=== PATIENT | female | born 1980 | race Caucasian/White ===

== ENCOUNTER → 2018-09-14 14:00 | Outpatient (CLI) | payer OTHER, SELFPAY | DX: Z23 Encounter for immunization (principal) | CPT/HCPCS: 90471; 90686 ==

== ENCOUNTER → 2018-11-30 13:11 | Outpatient (CLI) | payer OTHER, SELFPAY ==
--- NOTE | 2018-11-30 13:13 | DI.CT.S_ITS ---
PROCEDURE: CT ABDOMEN PELVIS W CON INDICATIONS: Left lower quadrant pain since 10/28 TECHNIQUE: After the administration of oral and intravenous contrast, 5 mm thick sections acquired from the diaphragms to the symphysis. 5 mm thick coronal and sagittal reformats were performed. For radiation dose reduction, the following was used: automated exposure control, adjustment of mA and/or kV according to patient size. COMPARISON: [facility], CT, ABDOMEN/PELVIS WITH CONTRAST, 07/06/2009, 11:27. FINDINGS: Image quality: Excellent. ABDOMEN: Lung bases: Linear scarring/atelectasis are noted in bilateral lung bases. Heart size is normal. Solid organs: Liver is normal in size and enhancement. There is hepatic steatosis. Gallbladder contains a 2.4 x 1.8 cm peripherally calcified stone. No gallbladder wall thickening or pericholecystic fluid is seen.. Biliary system is non-dilated. Pancreas enhances normally. Spleen is normal in size and enhancement. No adrenal nodules. Kidneys are normal in size and enhancement, without hydronephrosis. Peritoneum and bowel: There is wall thickening involving distal descending colon/proximal sigmoid colon with adjacent mesenteric fat stranding suggestive of acute diverticulitis in this region. No adjacent abscess collection. No other area of abnormal bowel wall thickening. No free fluid or free air. Appendix is visualized and is within normal limits. Nodes and vessels: No retroperitoneal or mesenteric adenopathy. Aorta and inferior vena cava are normal in caliber. Miscellaneous: No ventral hernias. PELVIS: Genitourinary: Bladder wall thickness is normal. Miscellaneous: No inguinal hernias or adenopathy. Bones: No suspicious bony lesions. No vertebral body compression fractures. IMPRESSION: 1. Finding is consistent with acute diverticulitis involving distal descending colon/proximal sigmoid colon in left lower quadrant. No abscess collection. No free fluid or free air. 2. No renal stone hydronephrosis. 3. Cholelithiasis. No CT evidence of acute cholecystitis. Hepatic steatosis. Findings were reported to Dr. Hein's office at 3:09 PM on 11/30/18. Dictated by: Jony Bass M.D. on 11/30/2018 at 14:52 Approved by: Jony Bass M.D. on 11/30/2018 at 15:09
== END ==
PROVIDERS: Visit Provider Obstetrics & Gynecology
DX: K57.32 Diverticulitis of large intestine without perforation or abscess without bleeding (principal); K80.20 Calculus of gallbladder without cholecystitis without obstruction; K76.0 Fatty (change of) liver, not elsewhere classified; R10.32 Left lower quadrant pain
CPT/HCPCS: 74177; Q9967

== ENCOUNTER → 2019-11-01 15:14 | Outpatient (CLI) | payer OTHER, SELFPAY | PROVIDERS: PCP Family Medicine | DX: Z23 Encounter for immunization (principal) | CPT/HCPCS: 90471; 90686 ==

== ENCOUNTER → 2020-06-27 16:05 | Outpatient (CLI) | payer OTHER, SELFPAY ==
--- NOTE | 2020-06-27 16:08 | DI.RAD.S_ITS ---
PROCEDURE: XR SHOULDER RT MIN 2V INDICATIONS: rt shoulder impingment TECHNIQUE: 3 views of the shoulder were acquired. COMPARISON: None. FINDINGS: Bones: No fractures or dislocations. No suspicious bony lesions. Visualized ribs appear intact. Soft tissues: No suspicious soft tissue calcifications. IMPRESSION: No acute osseous abnormalities seen on x-ray. If clinical symptoms persist or clinical suspicion for internal derangement is high, MRI is suggested for further evaluation. Dictated by: Fawn Rodriguez M.D. on 06/27/2020 at 17:55 Approved by: Fawn Rodriguez M.D. on 06/27/2020 at 17:56
== END ==
PROVIDERS: PCP Family Medicine; Referring Provider Family Medicine; Visit Provider Family Medicine
DX: M75.41 Impingement syndrome of right shoulder (principal)
CPT/HCPCS: 73030

== ENCOUNTER 2020-08-02 14:30 | Outpatient (RCR) | payer OTHER, SELFPAY ==
--- NOTE | 2020-07-04 14:03 | PT.OIE ---
Current Diagnoses Pain in right shoulder (07/04/20) Past Surgical History (Last Reviewed 12/04/18 @ 10:04 by Shari Ryan LPN) Status post hysteroscopy Status post hysteroscopy Visit Care Team Role Provider Type Juan Marsh MD Attending Provider Physician Primary Care Provider Referring Provider Specialty: Family Practice Address: [address] [place] [address], [id number] Email: [email or web address] Physical Therapy Initial Evaluation PT-OP-A Visit Information Start: 07/03/20 07:25 Freq: Status: Active Protocol: Document 07/04/20 09:45 MB (Rec: 07/04/20 10:10 MB [id number]) Out-Patient Physical Therapy Visit Information Visit Information Visit Type Initial Evaluation Visit Start Time 09:45 Visit Stop Time 10:23 Total Visit Minutes 38 Visit Number 1 Evaluation Information Evaluation Date 07/04/20 PT-OP-B Current Condition Start: 07/03/20 07:25 Freq: Status: Active Protocol: Document 07/04/20 09:45 MB (Rec: 07/04/20 10:10 MB [id number]) Current Condition History of Current Condition Onset Date Several years Current Complaints Pain with lifting arm to put on deoderant and to reach over head History of Current Condition Pt reports a few weeks ago, the worst pain she has ever had. She couldn't sleep. She worked on sleeping position and it got better. Pt reports up to 7/10 superior shoulder pain on the right and 5/10 armpit pain. She has tried ice and heat. 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 Her keyboard is on the desk. She has to sit close. She demostrates keeping her hands up near body at about 90/90 degrees. Pt repors some neck discomfort on the right. She denies numbness and tingling. Her right arm falls asleep easily when sleeping on her side. Pt has trouble washing de [place], up high. 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 PMH: PE 2007 and was treated, taken off BCP, increased BMI. Treatment Goals Patient/Caregiver Goals Pt's goal for PT is to increase ROM and to never have the pain she had a few weeks ago. PT-OP-C Subjective Start: 07/03/20 07:25 Freq: Status: Active Protocol: Document 07/04/20 09:45 MB (Rec: 07/04/20 10:10 MB [id number]) OP-PT Subjective Patient Comments Patient Comments See history of current condition. Patient Questionnaires Quick Dash- Upper Extremity Quick Dash UE Score 27 Quick Dash UE Impairment 20 to 39% Impaired (Score 20- 39) PT-OP-J Posture/Palpation/Skin Start: 07/03/20 07:25 Freq: Status: Active Protocol: Document 07/04/20 09:45 MB (Rec: 07/04/20 14:03 MB [id number]) Posture Evaluation Comments Posture Comments Standing posture: R shoulder slightly lower than the left ( pt is right hand dominant), Dowager's hump, decreased thoracic kyphosis, increased lumbar lordosis, anterior tilt pelvis, increased soft tissue anterior body that may exacerbate forward head, rounded shoulders, increased lumbar lordosis and anterior tilt pelvis, right iliac crest higher than the left, thigh approximation and B knee valgus in standing. PT-OP-K Range of Motion Start: 07/03/20 07:25 Freq: Status: Active Protocol: Document 07/04/20 09:45 MB (Rec: 07/04/20 14:03 MB [id number]) Cervical Spine Range of Motion Cervical Spine Active Testing Position Standing Flexion 24 Extension 35 Rotation Left 55 Rotation Right 48 Lateral Flexion Left 25 Lateral Flexion Right 25 ROM Limitations Soft Tissue Tightness,Pain Shoulder Goniometric Range of Motion Shoulder Left Shoulder ROM WFL Yes Right Shoulder ROM WFL No Testing Position Standing Flexion 124 Abduction 123 Shoulder ROM Limitations Comments Active IR behind back normal B Supine, pt guards with PROM right shoulder ER and IR with elbow at 90 deg and right shoulder at 60 deg abduction-- cannot measure Pt reports superior right shoulder pain 5/10 with active shoulder flexion and abduction in standing PT-OP-M Strength Start: 07/03/20 07:25 Freq: Status: Active Protocol: Document 07/04/20 09:45 MB (Rec: 07/04/20 14:03 MB [id number]) Shoulder Strength Shoulder Manual Muscle Testing Left Flexion 5 Normal Abduction (C5) 5 Normal External Rotation 5 Normal Internal Rotation 5 Normal Right External Rotation 3+ Fair+ Internal Rotation 3+ Fair+ Comments Right shoulder flexion and abduction NT d/t pain with AROM and self-limits range Elbow/Forearm Strength Elbow and Forearm Manual Muscle Testing Left Flexion (C6) 5 Normal Extension (C7) 5 Normal Pronation 5 Normal Supination 5 Normal Right Flexion (C6) 4 Good Extension (C7) 4 Good Pronation 4 Good Supination 4 Good Wrist Strength Wrist Manual Muscle Testing Left Flexion (C7) 5 Normal Extension (C6) 5 Normal Right Flexion (C7) 3+ Fair+ Extension (C6) 3+ Fair+ PT-OP-Q Treatments Start: 07/03/20 07:25 Freq: Status: Active Protocol: Document 07/04/20 09:45 MB (Rec: 07/04/20 10:26 MB [id number]) Therapeutic Exercises Supine Exercises AAROM right shoulder flexion with cane Side bilateral Comments 10 reps, thumbs up, cervical support in pillow Standing Exercises Racquet ball massage intrascapular area Comments Right greater than left Self-Care/Home Management Treatment Education Other Education Handout for proper desk ergonomics PT-OP-T Assessment and Plan Start: 07/03/20 07:25 Freq: Status: Active Protocol: Document 07/04/20 09:45 MB (Rec: 07/04/20 10:45 MB [id number]) Physical Therapy Assessment Rehab Potential Rehabilitation Potential Good Evaluation Complexity Number of Personal Factors/Comorbidities 1-2 Number of Body Systems Impaired 1-2 Clinical Presentation at Evaluation Evolving Impairments Impairments Activity Tolerance,Pain, Posture,ROM,Soft Tissue Mobility,Strength Other Impairments Increased body mass, sitting at desk for work Other Concerns Fall Risk No Goals 4 Jail Goal (LTG) Pt will present with a QuickDASH score reflecting no more than 10% impairment to reflect improved function and pain by 09/04/2020. LTG Duration 8 weeks 3 Cyber Systems Administrator Goal (LTG) Pt will present with right UE AROM flexion and abduction WNLs (equal to the left) to allow overhead activities by 09/04/2020. LTG Duration 8 weeks 2 Cyber Systems Administrator Goal (LTG) Pt will present with right MMT 5/5 shoulder flexion, abduction, IR and ER and elbow pronation and supination and wrist flexion and extension to allow normal use of dominant hand by 09/04/2020. LTG Duration 8 weeks 1 Jail Goal (LTG) Pt will perform progressive HEP with I including flexibility, postural, alignment and strengthening to improve ROM and pain by 2019. LTG Duration 8 weeks Assessment Summary Assessment Pt is a 39 y/o female presenting with chronic right shoulder pain. She presents with postural and myofascial changes, right shoulder ROM and strength deficits and has to sit at a desk for her job. She will benefit from PT to improve range, strength, posture, alignment and pain. Barriers include postural changes, increased body mass and sitting for work. Physical Therapy Plan Frequency and Duration Frequency of Treatment 2x/Week Duration of Treatment 8 weeks Plan of Care Start Date 07/04/20 Plan of Care End Date 09/04/20 Therapeutic Interventions Therapeutic Interventions Canalithic Repositioning,Home Exercise Program,Manual Therapy,Neuromuscular Re- education,Patient/Caregiver Education,Self-Care/Home Management,Soft Tissue Mobilization,Taping, Therapeutic Activities, Therapeutic Exercises Modalities Cold Pack/Ice Massage,Electric Stimulation,Hot Packs, Ultrasound Next Visit Focus/Plan Next Note Type Treatment Note Next Visit Plan Review HEP and progress
--- NOTE | 2020-07-04 14:03 | PT.OPPOC ---
Physical, Occupational & Speech Therapy At [facility] Current Diagnoses Pain in right shoulder (07/04/20) Visit Care Team Role Provider Type Juan Marsh MD Attending Provider Physician Primary Care Provider Referring Provider Specialty: Family Practice Address: [address] [place] [address], [address] Email: [email or web address] Plan Of Care PT-OP-T Assessment and Plan Start: 07/03/20 07:25 Freq: Status: Active Protocol: Document 07/04/20 09:45 MB (Rec: 07/04/20 10:45 MB [id number]) Physical Therapy Assessment Rehab Potential Rehabilitation Potential Good Evaluation Complexity Number of Personal Factors/Comorbidities 1-2 Number of Body Systems Impaired 1-2 Clinical Presentation at Evaluation Evolving Impairments Impairments Activity Tolerance,Pain, Posture,ROM,Soft Tissue Mobility,Strength Other Impairments Increased body mass, sitting at desk for work Other Concerns Fall Risk No Goals 4 Milk Runner Goal (LTG) Pt will present with a QuickDASH score reflecting no more than 10% impairment to reflect improved function and pain by 09/04/2020. LTG Duration 8 weeks 3 Milk Runner Goal (LTG) Pt will present with right UE AROM flexion and abduction WNLs (equal to the left) to allow overhead activities by 09/04/2020. LTG Duration 8 weeks 2 Milk Runner Goal (LTG) Pt will present with right MMT 5/5 shoulder flexion, abduction, IR and ER and elbow pronation and supination and wrist flexion and extension to allow normal use of dominant hand by 09/04/2020. LTG Duration 8 weeks 1 Fdc Goal (LTG) Pt will perform progressive HEP with I including flexibility, postural, alignment and strengthening to improve ROM and pain by 2019. LTG Duration 8 weeks Assessment Summary Assessment Pt is a 39 y/o female presenting with chronic right shoulder pain. She presents with postural and myofascial changes, right shoulder ROM and strength deficits and has to sit at a desk for her job. She will benefit from PT to improve range, strength, posture, alignment and pain. Barriers include postural changes, increased body mass and sitting for work. Physical Therapy Plan Frequency and Duration Frequency of Treatment 2x/Week Duration of Treatment 8 weeks Plan of Care Start Date 07/04/20 Plan of Care End Date 09/04/20 Therapeutic Interventions Therapeutic Interventions Canalithic Repositioning,Home Exercise Program,Manual Therapy,Neuromuscular Re- education,Patient/Caregiver Education,Self-Care/Home Management,Soft Tissue Mobilization,Taping, Therapeutic Activities, Therapeutic Exercises Modalities Cold Pack/Ice Massage,Electric Stimulation,Hot Packs, Ultrasound Next Visit Focus/Plan Next Note Type Treatment Note Next Visit Plan Review HEP and progress Plan of Care Dates Plan of Care Start Date 07/04/20 Plan of Care End Date 09/04/20 Electronically Signed by: Chaparrita Crawley, PT 07/04/20 1835 Please Sign and Return: I have reviewed this Plan of Care and certify that the skilled therapy services above are required to meet the patient?s needs. Physician Signature Date Printed Name and Credentials Clinical Instructor Signature Printed Name and Credentials
--- NOTE | 2020-07-06 10:29 | PT.OTN ---
Current Diagnoses Pain in right shoulder (07/06/20) Physical Therapy Treatment Note PT-OP-A Visit Information Start: 07/03/20 07:25 Freq: Status: Active Protocol: Document 07/06/20 09:47 MB (Rec: 07/06/20 10:25 MB [id number]) Out-Patient Physical Therapy Visit Information Visit Information Visit Type Treatment Note Visit Start Time 09:47 Visit Stop Time 10:27 Total Visit Minutes 40 Visit Number 2 PT-OP-B Current Condition Start: 07/03/20 07:25 Freq: Status: Active Protocol: Document 07/04/20 09:45 MB (Rec: 07/04/20 10:10 MB [id number]) Current Condition History of Current Condition Onset Date Several years Current Complaints Pain with lifting arm to put on deoderant and to reach over head History of Current Condition Pt reports a few weeks ago, the worst pain she has ever had. She couldn't sleep. She worked on sleeping position and it got better. Pt reports up to 7/10 superior shoulder pain on the right and 5/10 armpit pain. She has tried ice and heat. 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 Her keyboard is on the desk. She has to sit close. She demostrates keeping her hands up near body at about 90/90 degrees. Pt repors some neck discomfort on the right. She denies numbness and tingling. Her right arm falls asleep easily when sleeping on her side. Pt has trouble washing de [place], up high. 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 PMH: PE 2007 and was treated, taken off BCP, increased BMI. Treatment Goals Patient/Caregiver Goals Pt's goal for PT is to increase ROM and to never have the pain she had a few weeks ago. PT-OP-C Subjective Start: 07/03/20 07:25 Freq: Status: Active Protocol: Document 07/06/20 09:47 MB (Rec: 07/06/20 10:25 MB [id number]) OP-PT Subjective Patient Comments Patient Comments Pt states that she is feeling a little better. She is doing her racquet ball massage and range of motion in supine. PT-OP-J Posture/Palpation/Skin Start: 07/03/20 07:25 Freq: Status: Active Protocol: Document 07/04/20 09:45 MB (Rec: 07/04/20 14:03 MB [id number]) Posture Evaluation Comments Posture Comments Standing posture: R shoulder slightly lower than the left ( pt is right hand dominant), Dowager's hump, decreased thoracic kyphosis, increased lumbar lordosis, anterior tilt pelvis, increased soft tissue anterior body that may exacerbate forward head, rounded shoulders, increased lumbar lordosis and anterior tilt pelvis, right iliac crest higher than the left, thigh approximation and B knee valgus in standing. PT-OP-K Range of Motion Start: 07/03/20 07:25 Freq: Status: Active Protocol: Document 07/04/20 09:45 MB (Rec: 07/04/20 14:03 MB [id number]) Cervical Spine Range of Motion Cervical Spine Active Testing Position Standing Flexion 24 Extension 35 Rotation Left 55 Rotation Right 48 Lateral Flexion Left 25 Lateral Flexion Right 25 ROM Limitations Soft Tissue Tightness,Pain Shoulder Goniometric Range of Motion Shoulder Left Shoulder ROM WFL Yes Right Shoulder ROM WFL No Testing Position Standing Flexion 124 Abduction 123 Shoulder ROM Limitations Comments Active IR behind back normal B Supine, pt guards with PROM right shoulder ER and IR with elbow at 90 deg and right shoulder at 60 deg abduction-- cannot measure Pt reports superior right shoulder pain 5/10 with active shoulder flexion and abduction in standing PT-OP-M Strength Start: 07/03/20 07:25 Freq: Status: Active Protocol: Document 07/04/20 09:45 MB (Rec: 07/04/20 14:03 MB [id number]) Shoulder Strength Shoulder Manual Muscle Testing Left Flexion 5 Normal Abduction (C5) 5 Normal External Rotation 5 Normal Internal Rotation 5 Normal Right External Rotation 3+ Fair+ Internal Rotation 3+ Fair+ Comments Right shoulder flexion and abduction NT d/t pain with AROM and self-limits range Elbow/Forearm Strength Elbow and Forearm Manual Muscle Testing Left Flexion (C6) 5 Normal Extension (C7) 5 Normal Pronation 5 Normal Supination 5 Normal Right Flexion (C6) 4 Good Extension (C7) 4 Good Pronation 4 Good Supination 4 Good Wrist Strength Wrist Manual Muscle Testing Left Flexion (C7) 5 Normal Extension (C6) 5 Normal Right Flexion (C7) 3+ Fair+ Extension (C6) 3+ Fair+ PT-OP-Q Treatments Start: 07/03/20 07:25 Freq: Status: Active Protocol: Document 07/06/20 09:47 MB (Rec: 07/06/20 10:25 MB [id number]) Therapeutic Exercises Standing Exercises Pect stretch in doorway Comments Ed today to perform during the day Upper traps MWM racquet ball on edge of wall Comments Ed today and add to HEP MWM right infraspinatus Comments Active ER and IR with racquet ball in trigger point Self-Care/Home Management Treatment Education Other Education Reviewed pt's desk position in her office today. Ed pt in the changes she can make about placement of keyboard, no mouse pad, moving monitors closer and getting hips higher . PT-OP-T Assessment and Plan Start: 07/03/20 07:25 Freq: Status: Active Protocol: Document 07/06/20 09:47 MB (Rec: 07/06/20 10:25 MB [id number]) Physical Therapy Assessment Rehab Potential Rehabilitation Potential Good Evaluation Complexity Number of Personal Factors/Comorbidities 1-2 Number of Body Systems Impaired 1-2 Clinical Presentation at Evaluation Evolving Impairments Impairments Activity Tolerance,Pain, Posture,ROM,Soft Tissue Mobility,Strength Other Impairments Increased body mass, sitting at desk for work Other Concerns Fall Risk No Goals 4 Adaptive Physical Educator Goal (LTG) Pt will present with a QuickDASH score reflecting no more than 10% impairment to reflect improved function and pain by 09/04/2020. LTG Duration 8 weeks 3 Detention Goal (LTG) Pt will present with right UE AROM flexion and abduction WNLs (equal to the left) to allow overhead activities by 09/04/2020. LTG Duration 8 weeks 2 Detention Goal (LTG) Pt will present with right MMT 5/5 shoulder flexion, abduction, IR and ER and elbow pronation and supination and wrist flexion and extension to allow normal use of dominant hand by 09/04/2020. LTG Duration 8 weeks 1 Adaptive Physical Educator Goal (LTG) Pt will perform progressive HEP with I including flexibility, postural, alignment and strengthening to improve ROM and pain by 2019. LTG Duration 8 weeks Assessment Summary Assessment Reviewed pt's desk position in her office today. Ed pt in the changes she can make about placement of keyboard, no mouse pad, moving monitors closer and getting hips higher . Progressed flexibility exercises today and STM with racquetball. Ongoing postural, core training, shoulder range and strengthening. Physical Therapy Plan Frequency and Duration Frequency of Treatment 2x/Week Duration of Treatment 8 weeks Plan of Care Start Date 07/04/20 Plan of Care End Date 09/04/20 Therapeutic Interventions Therapeutic Interventions Canalithic Repositioning,Home Exercise Program,Manual Therapy,Neuromuscular Re- education,Patient/Caregiver Education,Self-Care/Home Management,Soft Tissue Mobilization,Taping, Therapeutic Activities, Therapeutic Exercises Modalities Cold Pack/Ice Massage,Electric Stimulation,Hot Packs, Ultrasound Next Visit Focus/Plan Next Note Type Treatment Note Next Visit Plan Review HEP and progress shoulder range and PNF in hook lying and on pool noodle.
--- NOTE | 2020-07-12 10:30 | PT.OTN ---
Current Diagnoses Pain in right shoulder (07/12/20) Physical Therapy Treatment Note PT-OP-A Visit Information Start: 07/03/20 07:25 Freq: Status: Active Protocol: Document 07/12/20 09:45 MB (Rec: 07/12/20 10:29 MB [id number]) Out-Patient Physical Therapy Visit Information Visit Information Visit Type Treatment Note Visit Start Time 09:49 Visit Stop Time 10:30 Total Visit Minutes 41 Visit Number 3 PT-OP-B Current Condition Start: 07/03/20 07:25 Freq: Status: Active Protocol: Document 07/04/20 09:45 MB (Rec: 07/04/20 10:10 MB [id number]) Current Condition History of Current Condition Onset Date Several years Current Complaints Pain with lifting arm to put on deoderant and to reach over head History of Current Condition Pt reports a few weeks ago, the worst pain she has ever had. She couldn't sleep. She worked on sleeping position and it got better. Pt reports up to 7/10 superior shoulder pain on the right and 5/10 armpit pain. She has tried ice and heat. 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 Her keyboard is on the desk. She has to sit close. She demostrates keeping her hands up near body at about 90/90 degrees. Pt repors some neck discomfort on the right. She denies numbness and tingling. Her right arm falls asleep easily when sleeping on her side. Pt has trouble washing de la rosa, up high. 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 PMH: PE 2007 and was treated, taken off BCP, increased BMI. Treatment Goals Patient/Caregiver Goals Pt's goal for PT is to increase ROM and to never have the pain she had a few weeks ago. PT-OP-C Subjective Start: 07/03/20 07:25 Freq: Status: Active Protocol: Document 07/12/20 09:45 MB (Rec: 07/12/20 10:29 MB [id number]) OP-PT Subjective Patient Comments Patient Comments Pt states that she is feeling pretty good but a little sore with cane flexion exercises and over shoulder blades. PT-OP-J Posture/Palpation/Skin Start: 07/03/20 07:25 Freq: Status: Active Protocol: Document 07/04/20 09:45 MB (Rec: 07/04/20 14:03 MB [id number]) Posture Evaluation Comments Posture Comments Standing posture: R shoulder slightly lower than the left ( pt is right hand dominant), Dowager's hump, decreased thoracic kyphosis, increased lumbar lordosis, anterior tilt pelvis, increased soft tissue anterior body that may exacerbate forward head, rounded shoulders, increased lumbar lordosis and anterior tilt pelvis, right iliac crest higher than the left, thigh approximation and B knee valgus in standing. PT-OP-K Range of Motion Start: 07/03/20 07:25 Freq: Status: Active Protocol: Document 07/04/20 09:45 MB (Rec: 07/04/20 14:03 MB [id number]) Cervical Spine Range of Motion Cervical Spine Active Testing Position Standing Flexion 24 Extension 35 Rotation Left 55 Rotation Right 48 Lateral Flexion Left 25 Lateral Flexion Right 25 ROM Limitations Soft Tissue Tightness,Pain Shoulder Goniometric Range of Motion Shoulder Left Shoulder ROM WFL Yes Right Shoulder ROM WFL No Testing Position Standing Flexion 124 Abduction 123 Shoulder ROM Limitations Comments Active IR behind back normal B Supine, pt guards with PROM right shoulder ER and IR with elbow at 90 deg and right shoulder at 60 deg abduction-- cannot measure Pt reports superior right shoulder pain 5/10 with active shoulder flexion and abduction in standing PT-OP-M Strength Start: 07/03/20 07:25 Freq: Status: Active Protocol: Document 07/04/20 09:45 MB (Rec: 07/04/20 14:03 MB [id number]) Shoulder Strength Shoulder Manual Muscle Testing Left Flexion 5 Normal Abduction (C5) 5 Normal External Rotation 5 Normal Internal Rotation 5 Normal Right External Rotation 3+ Fair+ Internal Rotation 3+ Fair+ Comments Right shoulder flexion and abduction NT d/t pain with AROM and self-limits range Elbow/Forearm Strength Elbow and Forearm Manual Muscle Testing Left Flexion (C6) 5 Normal Extension (C7) 5 Normal Pronation 5 Normal Supination 5 Normal Right Flexion (C6) 4 Good Extension (C7) 4 Good Pronation 4 Good Supination 4 Good Wrist Strength Wrist Manual Muscle Testing Left Flexion (C7) 5 Normal Extension (C6) 5 Normal Right Flexion (C7) 3+ Fair+ Extension (C6) 3+ Fair+ PT-OP-Q Treatments Start: 07/03/20 07:25 Freq: Status: Active Protocol: Document 07/12/20 09:45 MB (Rec: 07/12/20 10:29 MB [id number]) Therapeutic Exercises Sitting Exercises Therapy ball pelvic rocks forward and back and clock and counter clock movement Comments 65 ball is better than 55 Standing Exercises Thread the needle against wall Comments B to improve thoracic rotation Pillow case slides Comments B and cues on posture and scapular retraction Use of back sales analyst Comments Upper traps with MWM, active cervical rotation and SB Upper traps MWM racquet ball on edge of wall Comments Re-ed pt today on position MWM right infraspinatus Comments Re-ed pt today on placement of ball PT-OP-T Assessment and Plan Start: 07/03/20 07:25 Freq: Status: Active Protocol: Document 07/12/20 09:45 MB (Rec: 07/12/20 10:29 MB [id number]) Physical Therapy Assessment Rehab Potential Rehabilitation Potential Good Evaluation Complexity Number of Personal Factors/Comorbidities 1-2 Number of Body Systems Impaired 1-2 Clinical Presentation at Evaluation Evolving Impairments Impairments Activity Tolerance,Pain, Posture,ROM,Soft Tissue Mobility,Strength Other Impairments Increased body mass, sitting at desk for work Other Concerns Fall Risk No Goals 4 Machining Manager Goal (LTG) Pt will present with a QuickDASH score reflecting no more than 10% impairment to reflect improved function and pain by 09/04/2020. LTG Duration 8 weeks 3 Half-Way Goal (LTG) Pt will present with right UE AROM flexion and abduction WNLs (equal to the left) to allow overhead activities by 09/04/2020. LTG Duration 8 weeks 2 Machining Manager Goal (LTG) Pt will present with right MMT 5/5 shoulder flexion, abduction, IR and ER and elbow pronation and supination and wrist flexion and extension to allow normal use of dominant hand by 09/04/2020. LTG Duration 8 weeks 1 Half-Way Goal (LTG) Pt will perform progressive HEP with I including flexibility, postural, alignment and strengthening to improve ROM and pain by 2019. LTG Duration 8 weeks Assessment Summary Assessment Progressed postural exercises today on the therapy ball and shoulder range exercises with scapular retraction. Right shoulder AROM flexion normal inm standing and abduction to 150 deg. Ongoing postural, core training, shoulder range and strengthening. Physical Therapy Plan Frequency and Duration Frequency of Treatment 2x/Week Duration of Treatment 8 weeks Plan of Care Start Date 07/04/20 Plan of Care End Date 09/04/20 Therapeutic Interventions Therapeutic Interventions Canalithic Repositioning,Home Exercise Program,Manual Therapy,Neuromuscular Re- education,Patient/Caregiver Education,Self-Care/Home Management,Soft Tissue Mobilization,Taping, Therapeutic Activities, Therapeutic Exercises Modalities Cold Pack/Ice Massage,Electric Stimulation,Hot Packs, Ultrasound Next Visit Focus/Plan Next Note Type Treatment Note Next Visit Plan Review HEP and progress shoulder range and PNF in hook lying and on pool noodle.
--- NOTE | 2020-07-13 09:00 | PT.OTN ---
Current Diagnoses Pain in right shoulder (07/13/20) Physical Therapy Treatment Note PT-OP-A Visit Information Start: 07/03/20 07:25 Freq: Status: Active Protocol: Document 07/13/20 08:19 MB (Rec: 07/13/20 08:46 MB [id number]) Out-Patient Physical Therapy Visit Information Visit Information Visit Type Treatment Note Visit Start Time 08:19 Visit Stop Time 09:00 Total Visit Minutes 41 Visit Number 4 PT-OP-B Current Condition Start: 07/03/20 07:25 Freq: Status: Active Protocol: Document 07/04/20 09:45 MB (Rec: 07/04/20 10:10 MB [id number]) Current Condition History of Current Condition Onset Date Several years Current Complaints Pain with lifting arm to put on deoderant and to reach over head History of Current Condition Pt reports a few weeks ago, the worst pain she has ever had. She couldn't sleep. She worked on sleeping position and it got better. Pt reports up to 7/10 superior shoulder pain on the right and 5/10 armpit pain. She has tried ice and heat. 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 Her keyboard is on the desk. She has to sit close. She demostrates keeping her hands up near body at about 90/90 degrees. Pt repors some neck discomfort on the right. She denies numbness and tingling. Her right arm falls asleep easily when sleeping on her side. Pt has trouble washing de [place] ro[place], up high. 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 PMH: PE 2007 and was treated, taken off BCP, increased BMI. Treatment Goals Patient/Caregiver Goals Pt's goal for PT is to increase ROM and to never have the pain she had a few weeks ago. PT-OP-C Subjective Start: 07/03/20 07:25 Freq: Status: Active Protocol: Document 07/13/20 08:19 MB (Rec: 07/13/20 08:46 MB [id number]) OP-PT Subjective Patient Comments Patient Comments Pt states that she is doing well. She had a long drive yesterday. She did her thread the needle stretch when she got home. PT-OP-J Posture/Palpation/Skin Start: 07/03/20 07:25 Freq: Status: Active Protocol: Document 07/04/20 09:45 MB (Rec: 07/04/20 14:03 MB [id number]) Posture Evaluation Comments Posture Comments Standing posture: R shoulder slightly lower than the left ( pt is right hand dominant), Dowager's hump, decreased thoracic kyphosis, increased lumbar lordosis, anterior tilt pelvis, increased soft tissue anterior body that may exacerbate forward head, rounded shoulders, increased lumbar lordosis and anterior tilt pelvis, right iliac crest higher than the left, thigh approximation and B knee valgus in standing. PT-OP-K Range of Motion Start: 07/03/20 07:25 Freq: Status: Active Protocol: Document 07/04/20 09:45 MB (Rec: 07/04/20 14:03 MB [id number]) Cervical Spine Range of Motion Cervical Spine Active Testing Position Standing Flexion 24 Extension 35 Rotation Left 55 Rotation Right 48 Lateral Flexion Left 25 Lateral Flexion Right 25 ROM Limitations Soft Tissue Tightness,Pain Shoulder Goniometric Range of Motion Shoulder Left Shoulder ROM WFL Yes Right Shoulder ROM WFL No Testing Position Standing Flexion 124 Abduction 123 Shoulder ROM Limitations Comments Active IR behind back normal B Supine, pt guards with PROM right shoulder ER and IR with elbow at 90 deg and right shoulder at 60 deg abduction-- cannot measure Pt reports superior right shoulder pain 5/10 with active shoulder flexion and abduction in standing PT-OP-M Strength Start: 07/03/20 07:25 Freq: Status: Active Protocol: Document 07/04/20 09:45 MB (Rec: 07/04/20 14:03 MB [id number]) Shoulder Strength Shoulder Manual Muscle Testing Left Flexion 5 Normal Abduction (C5) 5 Normal External Rotation 5 Normal Internal Rotation 5 Normal Right External Rotation 3+ Fair+ Internal Rotation 3+ Fair+ Comments Right shoulder flexion and abduction NT d/t pain with AROM and self-limits range Elbow/Forearm Strength Elbow and Forearm Manual Muscle Testing Left Flexion (C6) 5 Normal Extension (C7) 5 Normal Pronation 5 Normal Supination 5 Normal Right Flexion (C6) 4 Good Extension (C7) 4 Good Pronation 4 Good Supination 4 Good Wrist Strength Wrist Manual Muscle Testing Left Flexion (C7) 5 Normal Extension (C6) 5 Normal Right Flexion (C7) 3+ Fair+ Extension (C6) 3+ Fair+ PT-OP-Q Treatments Start: 07/03/20 07:25 Freq: Status: Active Protocol: Document 07/13/20 08:19 MB (Rec: 07/13/20 08:46 MB [id number]) Cardio Equipment Upper Body Ergometer (UBE) Duration (Minutes) 5 Other 2.5' forward and 2.5' backwards Therapeutic Exercises Supine Exercises Shoulder flexion with cane, pect stretch, Ts and half Xs on pool noodle Comments 10 flexion, Ts and half Xs, one pect stretch Pool noodle core engagement Comments Abdominal drawing in Manual Therapy Treatment Joint Mobilizations PA thoracic mobs and rib recoil Comments B scapular mobs, Grade IV mobs and pt with improved thoracic mobility afterwards, pt prone PT-OP-T Assessment and Plan Start: 07/03/20 07:25 Freq: Status: Active Protocol: Document 07/13/20 08:19 MB (Rec: 07/13/20 08:46 MB [id number]) Physical Therapy Assessment Rehab Potential Rehabilitation Potential Good Evaluation Complexity Number of Personal Factors/Comorbidities 1-2 Number of Body Systems Impaired 1-2 Clinical Presentation at Evaluation Evolving Impairments Impairments Activity Tolerance,Pain, Posture,ROM,Soft Tissue Mobility,Strength Other Impairments Increased body mass, sitting at desk for work Other Concerns Fall Risk No Goals 4 Long-Term Goal (LTG) Pt will present with a QuickDASH score reflecting no more than 10% impairment to reflect improved function and pain by 09/04/2020. LTG Duration 8 weeks 3 Long-Term Goal (LTG) Pt will present with right UE AROM flexion and abduction WNLs (equal to the left) to allow overhead activities by 09/04/2020. LTG Duration 8 weeks 2 Locomotive Firer Goal (LTG) Pt will present with right MMT 5/5 shoulder flexion, abduction, IR and ER and elbow pronation and supination and wrist flexion and extension to allow normal use of dominant hand by 09/04/2020. LTG Duration 8 weeks 1 Locomotive Firer Goal (LTG) Pt will perform progressive HEP with I including flexibility, postural, alignment and strengthening to improve ROM and pain by 2019. LTG Duration 8 weeks Assessment Summary Assessment Progressed core and range over pool noodle today. Physical Therapy Plan Frequency and Duration Frequency of Treatment 2x/Week Duration of Treatment 8 weeks Plan of Care Start Date 07/04/20 Plan of Care End Date 09/04/20 Therapeutic Interventions Therapeutic Interventions Canalithic Repositioning,Home Exercise Program,Manual Therapy,Neuromuscular Re- education,Patient/Caregiver Education,Self-Care/Home Management,Soft Tissue Mobilization,Taping, Therapeutic Activities, Therapeutic Exercises Modalities Cold Pack/Ice Massage,Electric Stimulation,Hot Packs, Ultrasound Next Visit Focus/Plan Next Note Type Treatment Note Next Visit Plan Progressed strengthening exercises over pool noodle and core progression
--- NOTE | 2020-07-18 08:58 | PT.OTN ---
Current Diagnoses Pain in right shoulder (07/18/20) Physical Therapy Treatment Note PT-OP-A Visit Information Start: 07/03/20 07:25 Freq: Status: Active Protocol: Document 07/18/20 08:16 MB (Rec: 07/18/20 08:58 MB [id number]) Out-Patient Physical Therapy Visit Information Visit Information Visit Type Treatment Note Visit Start Time 08:16 Visit Stop Time 08:56 Total Visit Minutes 40 Visit Number 5 PT-OP-B Current Condition Start: 07/03/20 07:25 Freq: Status: Active Protocol: Document 07/04/20 09:45 MB (Rec: 07/04/20 10:10 MB [id number]) Current Condition History of Current Condition Onset Date Several years Current Complaints Pain with lifting arm to put on deoderant and to reach over head History of Current Condition Pt reports a few weeks ago, the worst pain she has ever had. She couldn't sleep. She worked on sleeping position and it got better. Pt reports up to 7/10 superior shoulder pain on the right and 5/10 armpit pain. She has tried ice and heat. 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 Her keyboard is on the desk. She has to sit close. She demostrates keeping her hands up near body at about 90/90 degrees. Pt repors some neck discomfort on the right. She denies numbness and tingling. Her right arm falls asleep easily when sleeping on her side. Pt has trouble washing de [place] ro[place], up high. 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 PMH: PE 2007 and was treated, taken off BCP, increased BMI. Treatment Goals Patient/Caregiver Goals Pt's goal for PT is to increase ROM and to never have the pain she had a few weeks ago. PT-OP-C Subjective Start: 07/03/20 07:25 Freq: Status: Active Protocol: Document 07/18/20 08:16 MB (Rec: 07/18/20 08:58 MB [id number]) OP-PT Subjective Patient Comments Patient Comments Pt is feeling better. She is just back to work yesterday. She is not getting up much at work. She thinks her chair is too high. PT-OP-J Posture/Palpation/Skin Start: 07/03/20 07:25 Freq: Status: Active Protocol: Document 07/04/20 09:45 MB (Rec: 07/04/20 14:03 MB [id number]) Posture Evaluation Comments Posture Comments Standing posture: R shoulder slightly lower than the left ( pt is right hand dominant), Dowager's hump, decreased thoracic kyphosis, increased lumbar lordosis, anterior tilt pelvis, increased soft tissue anterior body that may exacerbate forward head, rounded shoulders, increased lumbar lordosis and anterior tilt pelvis, right iliac crest higher than the left, thigh approximation and B knee valgus in standing. PT-OP-K Range of Motion Start: 07/03/20 07:25 Freq: Status: Active Protocol: Document 07/04/20 09:45 MB (Rec: 07/04/20 14:03 MB [id number]) Cervical Spine Range of Motion Cervical Spine Active Testing Position Standing Flexion 24 Extension 35 Rotation Left 55 Rotation Right 48 Lateral Flexion Left 25 Lateral Flexion Right 25 ROM Limitations Soft Tissue Tightness,Pain Shoulder Goniometric Range of Motion Shoulder Left Shoulder ROM WFL Yes Right Shoulder ROM WFL No Testing Position Standing Flexion 124 Abduction 123 Shoulder ROM Limitations Comments Active IR behind back normal B Supine, pt guards with PROM right shoulder ER and IR with elbow at 90 deg and right shoulder at 60 deg abduction-- cannot measure Pt reports superior right shoulder pain 5/10 with active shoulder flexion and abduction in standing PT-OP-M Strength Start: 07/03/20 07:25 Freq: Status: Active Protocol: Document 07/04/20 09:45 MB (Rec: 07/04/20 14:03 MB [id number]) Shoulder Strength Shoulder Manual Muscle Testing Left Flexion 5 Normal Abduction (C5) 5 Normal External Rotation 5 Normal Internal Rotation 5 Normal Right External Rotation 3+ Fair+ Internal Rotation 3+ Fair+ Comments Right shoulder flexion and abduction NT d/t pain with AROM and self-limits range Elbow/Forearm Strength Elbow and Forearm Manual Muscle Testing Left Flexion (C6) 5 Normal Extension (C7) 5 Normal Pronation 5 Normal Supination 5 Normal Right Flexion (C6) 4 Good Extension (C7) 4 Good Pronation 4 Good Supination 4 Good Wrist Strength Wrist Manual Muscle Testing Left Flexion (C7) 5 Normal Extension (C6) 5 Normal Right Flexion (C7) 3+ Fair+ Extension (C6) 3+ Fair+ PT-OP-Q Treatments Start: 07/03/20 07:25 Freq: Status: Active Protocol: Document 07/18/20 08:16 MB (Rec: 07/18/20 08:58 MB [id number]) Cardio Equipment Upper Body Ergometer (UBE) Duration (Minutes) 5 Other 2.5' forward and 2.5' backwards Therapeutic Exercises Supine Exercises Shoulder ER with elbows at side, pool noodle Side bilateral Comments Level 2 band, elbows at side PNF with band on pool noodle Side bilateral Comments Level 2 band x10 reps Shoulder flexion with cane, pect stretch, Ts and half Xs on pool noodle Comments Ab drawing in, B shoulder flexion, pec stretch, PNF x10 reps Manual Therapy Treatment Joint Mobilizations PA thoracic mobs and rib recoil Comments Prone PA Grade IV mobs thoracic spine, B scapular mobs PT-OP-T Assessment and Plan Start: 07/03/20 07:25 Freq: Status: Active Protocol: Document 07/18/20 08:16 MB (Rec: 07/18/20 08:58 MB [id number]) Physical Therapy Assessment Rehab Potential Rehabilitation Potential Good Evaluation Complexity Number of Personal Factors/Comorbidities 1-2 Number of Body Systems Impaired 1-2 Clinical Presentation at Evaluation Evolving Impairments Impairments Activity Tolerance,Pain, Posture,ROM,Soft Tissue Mobility,Strength Other Impairments Increased body mass, sitting at desk for work Other Concerns Fall Risk No Goals 4 Mixer Helper Goal (LTG) Pt will present with a QuickDASH score reflecting no more than 10% impairment to reflect improved function and pain by 09/04/2020. LTG Duration 8 weeks 3 Fci Goal (LTG) Pt will present with right UE AROM flexion and abduction WNLs (equal to the left) to allow overhead activities by 09/04/2020. LTG Duration 8 weeks 2 Mixer Helper Goal (LTG) Pt will present with right MMT 5/5 shoulder flexion, abduction, IR and ER and elbow pronation and supination and wrist flexion and extension to allow normal use of dominant hand by 09/04/2020. LTG Duration 8 weeks 1 Mixer Helper Goal (LTG) Pt will perform progressive HEP with I including flexibility, postural, alignment and strengthening to improve ROM and pain by 2019. LTG Duration 8 weeks Assessment Summary Assessment Progressed strengthening over pool noodle today. Con't with thoracic tension. Physical Therapy Plan Frequency and Duration Frequency of Treatment 2x/Week Duration of Treatment 8 weeks Plan of Care Start Date 07/04/20 Plan of Care End Date 09/04/20 Therapeutic Interventions Therapeutic Interventions Canalithic Repositioning,Home Exercise Program,Manual Therapy,Neuromuscular Re- education,Patient/Caregiver Education,Self-Care/Home Management,Soft Tissue Mobilization,Taping, Therapeutic Activities, Therapeutic Exercises Modalities Cold Pack/Ice Massage,Electric Stimulation,Hot Packs, Ultrasound Next Visit Focus/Plan Next Note Type Treatment Note Next Visit Plan Progress core strengthening over pool noodle and standing strengthening exercises in future treatments
--- NOTE | 2020-07-20 09:01 | PT.OTN ---
Current Diagnoses Pain in right shoulder (07/20/20) Physical Therapy Treatment Note PT-OP-A Visit Information Start: 07/03/20 07:25 Freq: Status: Active Protocol: Document 07/20/20 08:17 MB (Rec: 07/20/20 08:56 MB [id number]) Out-Patient Physical Therapy Visit Information Visit Information Visit Type Treatment Note Visit Start Time 08:17 Visit Stop Time 09:00 Total Visit Minutes 43 Visit Number 6 PT-OP-B Current Condition Start: 07/03/20 07:25 Freq: Status: Active Protocol: Document 07/04/20 09:45 MB (Rec: 07/04/20 10:10 MB [id number]) Current Condition History of Current Condition Onset Date Several years Current Complaints Pain with lifting arm to put on deoderant and to reach over head History of Current Condition Pt reports a few weeks ago, the worst pain she has ever had. She couldn't sleep. She worked on sleeping position and it got better. Pt reports up to 7/10 superior shoulder pain on the right and 5/10 armpit pain. She has tried ice and heat. 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 Her keyboard is on the desk. She has to sit close. She demostrates keeping her hands up near body at about 90/90 degrees. Pt repors some neck discomfort on the right. She denies numbness and tingling. Her right arm falls asleep easily when sleeping on her side. Pt has trouble washing de [place], up high. 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 PMH: PE 2007 and was treated, taken off BCP, increased BMI. Treatment Goals Patient/Caregiver Goals Pt's goal for PT is to increase ROM and to never have the pain she had a few weeks ago. PT-OP-C Subjective Start: 07/03/20 07:25 Freq: Status: Active Protocol: Document 07/20/20 08:17 MB (Rec: 07/20/20 08:56 MB [id number]) OP-PT Subjective Patient Comments Patient Comments Pt states that cleaning/ renovating her daughter's room went a lot better with her shoulder. PT-OP-J Posture/Palpation/Skin Start: 07/03/20 07:25 Freq: Status: Active Protocol: Document 07/04/20 09:45 MB (Rec: 07/04/20 14:03 MB [id number]) Posture Evaluation Comments Posture Comments Standing posture: R shoulder slightly lower than the left ( pt is right hand dominant), Dowager's hump, decreased thoracic kyphosis, increased lumbar lordosis, anterior tilt pelvis, increased soft tissue anterior body that may exacerbate forward head, rounded shoulders, increased lumbar lordosis and anterior tilt pelvis, right iliac crest higher than the left, thigh approximation and B knee valgus in standing. PT-OP-K Range of Motion Start: 07/03/20 07:25 Freq: Status: Active Protocol: Document 07/04/20 09:45 MB (Rec: 07/04/20 14:03 MB [id number]) Cervical Spine Range of Motion Cervical Spine Active Testing Position Standing Flexion 24 Extension 35 Rotation Left 55 Rotation Right 48 Lateral Flexion Left 25 Lateral Flexion Right 25 ROM Limitations Soft Tissue Tightness,Pain Shoulder Goniometric Range of Motion Shoulder Left Shoulder ROM WFL Yes Right Shoulder ROM WFL No Testing Position Standing Flexion 124 Abduction 123 Shoulder ROM Limitations Comments Active IR behind back normal B Supine, pt guards with PROM right shoulder ER and IR with elbow at 90 deg and right shoulder at 60 deg abduction-- cannot measure Pt reports superior right shoulder pain 5/10 with active shoulder flexion and abduction in standing PT-OP-M Strength Start: 07/03/20 07:25 Freq: Status: Active Protocol: Document 07/04/20 09:45 MB (Rec: 07/04/20 14:03 MB [id number]) Shoulder Strength Shoulder Manual Muscle Testing Left Flexion 5 Normal Abduction (C5) 5 Normal External Rotation 5 Normal Internal Rotation 5 Normal Right External Rotation 3+ Fair+ Internal Rotation 3+ Fair+ Comments Right shoulder flexion and abduction NT d/t pain with AROM and self-limits range Elbow/Forearm Strength Elbow and Forearm Manual Muscle Testing Left Flexion (C6) 5 Normal Extension (C7) 5 Normal Pronation 5 Normal Supination 5 Normal Right Flexion (C6) 4 Good Extension (C7) 4 Good Pronation 4 Good Supination 4 Good Wrist Strength Wrist Manual Muscle Testing Left Flexion (C7) 5 Normal Extension (C6) 5 Normal Right Flexion (C7) 3+ Fair+ Extension (C6) 3+ Fair+ PT-OP-Q Treatments Start: 07/03/20 07:25 Freq: Status: Active Protocol: Document 07/20/20 08:17 MB (Rec: 07/20/20 08:56 MB [id number]) Cardio Equipment Upper Body Ergometer (UBE) Duration (Minutes) 10 Other 2.5 forward and 7.5 backwards Therapeutic Exercises Supine Exercises Core progression Side bilateral Reps/Minutes 5 reps Comments Abd drawing in, lumbar rotation, HS, knee drop out, mini march Shoulder ER with elbows at side, pool noodle Comments Pect stretch hook lying today, no noodle Manual Therapy Treatment Joint Mobilizations PA thoracic mobs and rib recoil Comments Prone PA Grade IV mobs thoracic spine, B scapular mobs PT-OP-T Assessment and Plan Start: 07/03/20 07:25 Freq: Status: Active Protocol: Document 07/20/20 08:17 MB (Rec: 07/20/20 08:56 MB [id number]) Physical Therapy Assessment Rehab Potential Rehabilitation Potential Good Evaluation Complexity Number of Personal Factors/Comorbidities 1-2 Number of Body Systems Impaired 1-2 Clinical Presentation at Evaluation Evolving Impairments Impairments Activity Tolerance,Pain, Posture,ROM,Soft Tissue Mobility,Strength Other Impairments Increased body mass, sitting at desk for work Other Concerns Fall Risk No Goals 4 [facility] Goal (LTG) Pt will present with a QuickDASH score reflecting no more than 10% impairment to reflect improved function and pain by 09/04/2020. LTG Duration 8 weeks 3 [facility] Goal (LTG) Pt will present with right UE AROM flexion and abduction WNLs (equal to the left) to allow overhead activities by 09/04/2020. LTG Duration 8 weeks 2 [employer] Goal (LTG) Pt will present with right MMT 5/5 shoulder flexion, abduction, IR and ER and elbow pronation and supination and wrist flexion and extension to allow normal use of dominant hand by 09/04/2020. LTG Duration 8 weeks 1 [employer] Goal (LTG) Pt will perform progressive HEP with I including flexibility, postural, alignment and strengthening to improve ROM and pain by 2019. LTG Duration 8 weeks Assessment Summary Assessment Progressed abdominal exercises day. Con't strengthening and flexibility. Anticipate 3 more treatments with 1 treatment a week. Physical Therapy Plan Frequency and Duration Frequency of Treatment 2x/Week Duration of Treatment 8 weeks Plan of Care Start Date 07/04/20 Plan of Care End Date 09/04/20 Therapeutic Interventions Therapeutic Interventions Canalithic Repositioning,Home Exercise Program,Manual Therapy,Neuromuscular Re- education,Patient/Caregiver Education,Self-Care/Home Management,Soft Tissue Mobilization,Taping, Therapeutic Activities, Therapeutic Exercises Modalities Cold Pack/Ice Massage,Electric Stimulation,Hot Packs, Ultrasound Next Visit Focus/Plan Next Note Type Treatment Note Next Visit Plan Progress core strengthening over pool noodle and standing strengthening exercises in future treatments
--- NOTE | 2020-08-02 15:25 | PT.OTN ---
Current Diagnoses Pain in right shoulder (08/02/20) Physical Therapy Treatment Note PT-OP-A Visit Information Start: 07/03/20 07:25 Freq: Status: Active Protocol: Document 08/02/20 14:30 MB (Rec: 08/02/20 15:25 MB [id number]) Out-Patient Physical Therapy Visit Information Visit Information Visit Type Treatment Note Visit Start Time 14:30 Visit Stop Time 15:08 Total Visit Minutes 38 Visit Number 7 PT-OP-B Current Condition Start: 07/03/20 07:25 Freq: Status: Active Protocol: Document 07/04/20 09:45 MB (Rec: 07/04/20 10:10 MB [id number]) Current Condition History of Current Condition Onset Date Several years Current Complaints Pain with lifting arm to put on deoderant and to reach over head History of Current Condition Pt reports a few weeks ago, the worst pain she has ever had. She couldn't sleep. She worked on sleeping position and it got better. Pt reports up to 7/10 superior shoulder pain on the right and 5/10 armpit pain. She has tried ice and heat. 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 Her keyboard is on the desk. She has to sit close. She demostrates keeping her hands up near body at about 90/90 degrees. Pt repors some neck discomfort on the right. She denies numbness and tingling. Her right arm falls asleep easily when sleeping on her side. Pt has trouble washing de [place], up high. 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 PMH: PE 2007 and was treated, taken off BCP, increased BMI. Treatment Goals Patient/Caregiver Goals Pt's goal for PT is to increase ROM and to never have the pain she had a few weeks ago. PT-OP-C Subjective Start: 07/03/20 07:25 Freq: Status: Active Protocol: Document 08/02/20 14:30 MB (Rec: 08/02/20 15:25 MB [id number]) OP-PT Subjective Patient Comments Patient Comments Pt does not have pain. When she got uncomfortable with lots of gardening, she iced her shoulder and did her exercises and got better. Work is going well. Patient Questionnaires Quick Dash- Upper Extremity Quick Dash UE Score 0 Quick Dash UE Impairment 0% Impaired (Score 0) PT-OP-J Posture/Palpation/Skin Start: 07/03/20 07:25 Freq: Status: Active Protocol: Document 07/04/20 09:45 MB (Rec: 07/04/20 14:03 MB [id number]) Posture Evaluation Comments Posture Comments Standing posture: R shoulder slightly lower than the left ( pt is right hand dominant), Dowager's hump, decreased thoracic kyphosis, increased lumbar lordosis, anterior tilt pelvis, increased soft tissue anterior body that may exacerbate forward head, rounded shoulders, increased lumbar lordosis and anterior tilt pelvis, right iliac crest higher than the left, thigh approximation and B knee valgus in standing. PT-OP-K Range of Motion Start: 07/03/20 07:25 Freq: Status: Active Protocol: Document 07/04/20 09:45 MB (Rec: 07/04/20 14:03 MB [id number]) Cervical Spine Range of Motion Cervical Spine Active Testing Position Standing Flexion 24 Extension 35 Rotation Left 55 Rotation Right 48 Lateral Flexion Left 25 Lateral Flexion Right 25 ROM Limitations Soft Tissue Tightness,Pain Shoulder Goniometric Range of Motion Shoulder Left Shoulder ROM WFL Yes Right Shoulder ROM WFL No Testing Position Standing Flexion 124 Abduction 123 Shoulder ROM Limitations Comments Active IR behind back normal B Supine, pt guards with PROM right shoulder ER and IR with elbow at 90 deg and right shoulder at 60 deg abduction-- cannot measure Pt reports superior right shoulder pain 5/10 with active shoulder flexion and abduction in standing PT-OP-M Strength Start: 07/03/20 07:25 Freq: Status: Active Protocol: Document 07/04/20 09:45 MB (Rec: 07/04/20 14:03 MB [id number]) Shoulder Strength Shoulder Manual Muscle Testing Left Flexion 5 Normal Abduction (C5) 5 Normal External Rotation 5 Normal Internal Rotation 5 Normal Right External Rotation 3+ Fair+ Internal Rotation 3+ Fair+ Comments Right shoulder flexion and abduction NT d/t pain with AROM and self-limits range Elbow/Forearm Strength Elbow and Forearm Manual Muscle Testing Left Flexion (C6) 5 Normal Extension (C7) 5 Normal Pronation 5 Normal Supination 5 Normal Right Flexion (C6) 4 Good Extension (C7) 4 Good Pronation 4 Good Supination 4 Good Wrist Strength Wrist Manual Muscle Testing Left Flexion (C7) 5 Normal Extension (C6) 5 Normal Right Flexion (C7) 3+ Fair+ Extension (C6) 3+ Fair+ PT-OP-Q Treatments Start: 07/03/20 07:25 Freq: Status: Active Protocol: Document 08/02/20 14:30 MB (Rec: 08/02/20 15:25 MB [id number]) Therapeutic Exercises Standing Exercises Scapular retraction with arms extended Comments Level 3 band, 10 reps, added to HEP Other Exercises Reviewed all HEP handouts and pt verbalizes understanding Comments Performed this today to prepare for d/c Manual Therapy Treatment Joint Mobilizations PA thoracic mobs and rib recoil Comments Prone PA mobs grade IV, scapular mobs; supine left first rib isometric, MWM B upper traps with PT providing trigger point pressure and pt performing active cervical rotation, suboccipital release PT-OP-T Assessment and Plan Start: 07/03/20 07:25 Freq: Status: Active Protocol: Document 08/02/20 14:30 MB (Rec: 08/02/20 15:25 MB [id number]) Physical Therapy Assessment Goals 4 [employer] Goal (LTG) Pt will present with a QuickDASH score reflecting no more than 10% impairment to reflect improved function and pain by 09/04/2020. 08/02/2020: QuickDASH score reflects 0% impairment LTG Duration 8 weeks 3 [facility] Goal (LTG) Pt will present with right UE AROM flexion and abduction WNLs (equal to the left) to allow overhead activities by 09/04/2020. 08/02/2020: Goal met LTG Duration 8 weeks 2 [facility] Goal (LTG) Pt will present with right MMT 5/5 shoulder flexion, abduction, IR and ER and elbow pronation and supination and wrist flexion and extension to allow normal use of dominant hand by 09/04/2020. 08/02/2020: Goal met, strength 5 /5 all above muscle groups LTG Duration 8 weeks 1 [employer] Goal (LTG) Pt will perform progressive HEP with I including flexibility, postural, alignment and strengthening to improve ROM and pain by 2019. 08/02/2020: Goal met: pt is performing exercises and can self-manage with exercises LTG Duration 8 weeks Assessment Summary Assessment Pt has met all PT goals since starting PT and these include QuickDASH score, performance of progressive HEP, range and strength. PT was able to assess work station and make suggestions. She has no more skilled PT needs and will d/c PT. Physical Therapy Plan Next Visit Focus/Plan Next Note Type Discharge Summary
== END 2020-08-03 11:28 ==
LOC: PHYS 14:30
PROVIDERS: PCP Family Medicine; Referring Provider Family Medicine; Visit Provider Family Medicine
DX: M25.511 Pain in right shoulder (principal)
CPT/HCPCS: 97110; 97140; 97161; 97535

== ENCOUNTER → 2020-10-10 | Outpatient (CLI) | payer OTHER, SELFPAY | PROVIDERS: PCP Family Medicine; Referring Provider Internal Medicine; Visit Provider Internal Medicine | DX: Z23 Encounter for immunization (principal) | CPT/HCPCS: 90471; 90686 ==

== ENCOUNTER → 2021-02-08 14:44 | Outpatient (CLI) | payer OTHER, SELFPAY ==
[2021-02-08] MEDS: COVID-19 VACC, Ad26(JANSSEN)/PF 0.5 ML IM (14:55)
== END ==
PROVIDERS: PCP Family Medicine; Visit Provider Internal Medicine
DX: Z23 Encounter for immunization (principal)
CPT/HCPCS: 0031A; 91303

== ENCOUNTER → 2021-06-13 10:38 | Outpatient (CLI) | payer OTHER, SELFPAY ==
[2021-06-13 11:50] LABS: COVID19 -Nasal RAPID Negative (Negative)
== END ==
PROVIDERS: PCP Family Medicine; Referring Provider Obstetrics & Gynecology; Visit Provider Obstetrics & Gynecology
DX: Z01.812 Encounter for preprocedural laboratory examination (principal); Z20.822 Contact with and (suspected) exposure to COVID-19
CPT/HCPCS: 87635

== ENCOUNTER 2021-06-14 08:29 | Day surgery (SDC) | payer OTHER, SELFPAY ==
[2021-06-08 10:52] VITALS: BMI 44.9
[2021-06-14] VITALS (8 sets, daily range): BP systolic 98–154; BP diastolic 60–93; PULSE 68–81; RESP 14–20; TEMP 36.2–36.9; O2SAT 94–99; BMI 44.9
--- NOTE | 2021-06-14 | PATH_ITS ---
[facility] Accession Number: [id number] . 01 Material submitted: . endometrium - ENDOMETRIAL CURETTINGS . 02 Diagnosis: Endometrial Curettings: Portions of interval phase endometrium with patchy features of breakdown; negative for glandular hyperplasia, cytologic atypia, or malignancy. Some endometrial fragments demonstrate prominent vessels, suggestive of polyp, if clinical and imaging studies are concordant. MRV 06/19/2021 1410 Local . 02 Electronically signed: . Deanna Yanes MD, Pathologist NPI- [id number] . 01 Gross description: . ENDOMETRIAL CURETTINGS: Received in formalin are minute fragments of mucoid and hemorrhagic material measuring 3.0 x 1.1 x 0.2 cm in aggregate. Submitted in toto in 1 cassette. /EV 06/15/2021 0258 Local . 02 Pathologist provided ICD-10: N85.00 . 02 CPT . 963826 Performed at: 01 [facility] [address], [place], [place] [id number] MD Hira Ren MD Phone: [phone] Performed at: 02 [facility] [address] [place], [place] [id number] MD Teena Mills MD Phone: [phone]
[2021-06-14] MEDS: LACTATED RINGERS 1,000 ML 100 ML IV (09:04)
--- NOTE | 2021-06-14 11:10 | PM.HP.1 ---
History of Present Illness History of Present Illness Date Patient Seen: 06/14/21 Time Patient Seen: 11:10 Chief complaint: SD Narrative: Patient is a 40-year-old 3 para 3 who presents for a D&C hysteroscopy with NovaSure endometrial ablation secondary to menorrhagia. Patient History Surgical History (Updated 06/08/21 @ 10:55 by Jennifer Aguilar RN) H/O colposcopy with cervical biopsy (04/20/21) Status post hysteroscopy Status post hysteroscopy Family & Social History Social History: household members spouse Tobacco & Substance use: Smoking Status Never smoker alcohol intake current alcohol intake frequency holiday/special occasion Substance Use Type does not use Meds Home Medications and Allergies Home Medications Medication Instructions Recorded Confirmed Type triamcinolone acetonide 0.5 % 1 applic TOPICAL BID #30 g 06/08/21 06/14/21 Rx topical cream Allergies Allergy/AdvReac Type Severity Reaction Status Date / Time amoxicillin [AMOXICILLIN] Allergy Mild RASH FACE, Verified 05/23/21 12:39 CHEST clindamycin [CLINDAMYCIN] Allergy Mild RASH Verified 05/23/21 12:39 FACE,CHEST Penicillins [PENICILLINS] Allergy Mild RASH FACE, Verified 05/23/21 12:39 CHEST Exam Vital Signs (past 8 hours): - 06/14/21 08:53 Temperature 97.5 F L Pulse Rate 78 Respiratory Rate 16 Blood Pressure 154/93 H Pulse Oximetry 99 Oxygen Delivery Method Room Air Oxygen Flow Rate 0 Narrative Exam Narrative: HEENT: No thyromegaly, no anterior cervical or supraclavicular lymphadenopathy. Lungs:Clear to auscultation bilaterally, no wheezes. Cardiovascular: Regular rate and rhythm, no murmurs, rubs, or gallops. Abdomen: No scars. No hepatosplenomegaly. No masses palpable. External genitalia: Normal Vagina: Normal Cervix: Parous Bimanual exam: 8 Week size anteverted uterus. Mobile. Assessment & Plan Assessment & Plan narrative: Assessment: 40-year-old 3 para 3 with menorrhagia Plan: D&C hysteroscopy with NovaSure endometrial ablation The risks, benefits, and alternatives to the procedure were explained to the patient. The risks including bleeding, infection, and uterine perforation. She understands these risks and agrees to proceed. A full par Q was held and consent form was signed. COVID-19 COVID-19 status: Negative Result date/Date tested (Pos, Neg/Pending): 06/13/21 Time Spent With Patient Time with patient: 15-24 minutes
--- NOTE | 2021-06-14 11:15 | PM.PREOP ---
Pre-operative Note COVID-19 COVID-19 status: Negative Result date/Date tested (Pos, Neg/Pending): 06/13/21 Interval Note History & Physical reviewed/Exam performed by Physician: Yes Changes to H&P: No H&P completed within 30 days and has changed as indicated here:: 06/14/21
--- NOTE | 2021-06-14 11:59 | PM.GYNOP.1 ---
Operative Date/Time/Diagnoses Date of procedure: 06/14/21 Time of procedure: 11:59 Pre-op diagnosis: Menorrhagia Post-op diagnosis: same Procedure & Clinicians Procedure: Procedures Operation Date: 06/14/21 09:45 Actual Procedure Side Surgeon p D&C Hysteroscopy w/ Novasure Ablation Bridgette Hein MD Indications: Menorrhagia Surgeon: Bridgette Hein Anesthesia Type: General (LMA) Operative Notes Findings: Seven week size anteverted uterus Both fallopian tube ostia observed Thickened endometrium posteriorly Closure Type: not applicable Specimen(s): endometrial curettings Estimated blood loss (mL): 20 Blood products transfused: none Procedure in detail: After informed consent was obtained, the patient was taken to the operating room where she was placed in the dorsal supine position. After adequate LMA general anesthesia was achieved, she was placed in the dorsal lithotomy position, and prepped and draped in the usual sterile fashion. A time-out was performed. A bivalve speculum was placed into the vagina and the anterior lip of the cervix grasped with a single-tooth tenaculum. The cervical os was sequentially dilated to the # 9 Hegar dilator. The hysteroscope passed easily into the endometrial cavity. Both fallopian tube ostia were observed. There was thickened endometrium posteriorly. The hysteroscope was removed from the uterus. Sharp curettage was performed yielding a moderate amount of endometrial curettings. The uterus was measured from the internal os to the fundus and measured 4 cm. This was set on the NovaSure catheter and the generator. The NovaSure catheter passed easily into the endometrial cavity and was opened. The width of the uterus was 2.5 cm. This was set on the generator. This indicated a power of 55 w. The cervix was capped, the cavity assessment was performed and passed. The cycle was initiated and lasted 114 seconds. At the completion of the cycle the catheter was closed, the cervix was then capped, and the NovaSure catheter was removed from the uterus. The single-tooth tenaculum was removed from the anterior lip of the cervix. The bivalve speculum was removed from the vagina. Sponge, lap, and instrument counts were correct x2. The patient tolerated the procedure well, and was taken to PACU in stable condition. Complications: none Post-operative Condition: stable Disposition: PACU Plan for aftercare: Home after recovery
--- NOTE | 2021-06-14 11:59 | SUR.OPER ---
Lithotomy on padded OR bed, head on pillow, arms secured on padded arm boards at <90 degrees abduction. Legs secured in padded yellow fins stirrups.
[2021-06-14] MEDS: OXYCODONE/ACETAMINOPHEN 5/325 TABLET 1 TAB PO (12:19)
== END 2021-06-14 13:19 | disposition home or self-care (01) ==
PROVIDERS: PCP Family Medicine; Referring Provider Obstetrics & Gynecology; Visit Provider Obstetrics & Gynecology
PROC: 0U5B8ZZ Destruction of Endometrium, Via Natural or Artificial Opening Endoscopic (ICD-10-PCS; CPT 58563; principal; 2021-06-14 09:45)
DX: N92.0 Excessive and frequent menstruation with regular cycle (principal)
CPT/HCPCS: 58563; J1100; J1885; J2250; J2405; J2704; J3010

== ENCOUNTER → 2021-10-19 15:25 | Outpatient (CLI) | payer OTHER, SELFPAY | PROVIDERS: PCP Family Medicine; Referring Provider Internal Medicine; Visit Provider Internal Medicine | DX: Z23 Encounter for immunization (principal) | CPT/HCPCS: 90471; 90686 ==

== ENCOUNTER → 2021-12-03 10:16 | Outpatient (CLI) | payer OTHER, SELFPAY ==
[2021-12-03 12:50] LABS: COVID19 -Nasal RAPID POSITIVE (Negative)
== END ==
PROVIDERS: PCP Family Medicine; Referring Provider Physician Assistant; Visit Provider Physician Assistant
DX: U07.1 COVID-19 (principal); Z20.822 Contact with and (suspected) exposure to COVID-19; J02.9 Acute pharyngitis, unspecified
CPT/HCPCS: 87635

== ENCOUNTER → 2022-05-03 10:45 | Outpatient (CLI) | payer OTHER, SELFPAY ==
[2022-05-03 12:55] LABS: COVID19 -Nasal RAPID Negative (Negative)
== END ==
PROVIDERS: PCP Family Medicine; Visit Provider Obstetrics & Gynecology
DX: Z01.812 Encounter for preprocedural laboratory examination (principal); Z20.822 Contact with and (suspected) exposure to COVID-19
CPT/HCPCS: 87635

== ENCOUNTER 2022-05-06 08:14 | Day surgery (SDC) | payer OTHER, SELFPAY ==
[2022-05-02 14:28] VITALS: BMI 44.6
[2022-05-06] VITALS (11 sets, daily range): BP systolic 147–166; BP diastolic 76–98; PULSE 70–100; RESP 15–18; TEMP 36.2–36.7; O2SAT 95–100; BMI 44.6
--- NOTE | 2022-05-06 | PATH_ITS ---
[facility] Accession Number: [id number] . 01 Material submitted: . uterus - UTERUS AND BILATERAL TUBES . 01 Diagnosis: Uterus and Bilateral Tubes, Hysterectomy: Disordered proliferative endometrium. Two fimbriated fallopian tubes with complete cross-section of lumen identified, and with benign paratubal cyst. No neoplasia identified. V 05/08/2022 1021 Local . 01 Electronically signed: . Natacha Castillo MD, Pathologist NPI- [id number] . 01 Gross description: . Received in formalin and labeled with the patient's name and uterus, bilateral tubes and consists of 254 grams of severely disrupted fragmented uterus aggregating to 15.2 x 12.7 x 4.3 cm. The identifiable serosa is murphy, wrinkled, and unremarkable with no areas of adhesion or hemorrhage noted. No endometrial cavity can be identified but the possible fragments of endometrium are murphy, lush, and measure up to 0.2 cm thick. Sectioning reveals a pink-murphy, firm, trabecular cut surface with no hemorrhage, necrosis, or discrete nodules identified. No cervical tissue is identified. . A detached fimbriated fallopian tube is included measuring 7.3 cm in length and 1.0 cm in greatest diameter. The serosa is violaceous, smooth, and significant for a cystic structure measuring 0.3 cm in greatest dimension. Sectioning reveals an unremarkable stellate lumen. . A fallopian tube attached to a fragment of uterus is identified measuring 6.5 cm in length and 1.0 cm in greatest diameter. The serosa is violaceous and slightly roughened with no cystic structures present. Sectioning reveals an unremarkable stellate lumen. . Bilingual Operator sections are submitted as follows: A1: Bilingual Operator myometrium and serosa. A2-A7: Entire endometrium. A8: Detached fallopian tube to include one-half of fimbria and door to door sales representative cross sections. A9: Attached fallopian tube to include one-half of fimbria and door to door sales representative cross sections. ([id number]) /[facility] 05/07/2022 1739 Local . 01 Pathologist provided ICD-10: N94.6 . 01 CPT . 870486 Specimen Comment: A courtesy copy of this report has been sent to [phone] Performed at: 01 [facility] [address] [place] [address] [address] [facility], [place], [place] [id number] MD Hira Ren MD Phone: [phone]
[2022-05-06] MEDS: LACTATED RINGERS 1,000 ML 100 ML IV ×2 (08:58→11:50)
--- NOTE | 2022-05-06 10:14 | PM.PREOP ---
Pre-operative Note COVID-19 COVID-19 status: Negative Result date/Date tested (Pos, Neg/Pending): 05/03/22 Criteria for continued procedure: Deterioration of the patient's condition or overall health and Non-surgical alternatives not available or appropriate per current SOC Interval Note History & Physical reviewed/Exam performed by Physician: Yes Changes to H&P: No H&P completed within 30 days and has changed as indicated here:: 05/03/22
[2022-05-06] MEDS: CEFAZOLIN 2 GM/20 ML SYRINGE IV (11:15)
--- NOTE | 2022-05-06 11:49 | SUR.OPER ---
Lithotomy on padded OR bed. [place] Pad Positioner under torso. Head on pillow, arms padded and tucked at sides. Legs secured in padded yellow fins stirrups.
--- NOTE | 2022-05-06 11:52 | SUR.OPER ---
In room time: 1103 Time out: 11:35 Start: 11:36
[2022-05-06] MEDS: ACETAMINOPHEN IV 1,000 MG/100 ML VIAL 400 MG IV (11:59)
[2022-05-06] MEDS: BUPIVACAINE 0.5% W/ EPI (PF) 30 ML VIAL INJ (12:37)
[2022-05-06] MEDS: ROPIVACAINE 0.2% PF 2 MG/ML 10ML AMP 20 ML INJ (12:53)
[2022-05-06] MEDS: SUGAMMADEX 500 MG/5 ML VIAL 230 MG IV (13:14)
--- NOTE | 2022-05-06 13:15 | P.OP_ITS ---
Operative Date/Time/Diagnoses Date of procedure: 05/06/22 Time of procedure: 13:15 Pre-op diagnosis: Severe dysmenorrhea status post endometrial ablation Post-op diagnosis: same Procedure & Clinicians Procedure: Procedures Operation Date: 05/06/22 09:15 Actual Procedure Side Surgeon p Laparoscopic Supracervical Hysterectomy w/ bilateral salpingectomy Bridgette Hein MD Indications: Severe dysmenorrhea status post endometrial ablation Surgeon: Bridgette Hein Cost Control Analyst: Erin Deleon Anesthesia Type: General and Local Operative Notes Findings: 10 week size anteverted uterus Left tube and cornua stuck to the left ovary Normal ovaries otherwise Normal right tube Normal liver and gallbladder Normal appendix Closure Type: primary Specimen(s): left tube, right tube and uterus Applied: catheter (Removed at the end of the case) Estimated blood loss (mL): 50 Blood products transfused: none Procedure in detail: The patient was taken to the operating room where she was placed in the dorsal supine position. After adequate general endotracheal anesthesia was achieved, she was placed in the dorsal lithotomy position, and prepped and draped in the usual sterile fashion. A timeout was performed. A bivalve speculum was placed into the vagina and the anterior lip of the cervix grasped with a single-tooth tenaculum. The cervical os was dilated, but the lower uterine segment was stenotic. The balloon was placed as far up as possible. The single-tooth tenaculum was removed from the anterior lip of the cervix, and the bivalve speculum was removed from the vagina. A moistened sponge stick was placed into the vagina. Attention was then turned to the abdomen where 6 mL of quarter percent Marcaine with epinephrine were injected in the umbilical fold. A 5 mm incision was made. The long Verees needle was placed into the peritoneal cavity, and its placement confirmed by aspiration and drop test. The Verees needle was removed. A long 5 mm trocar was placed without difficulty. 2 other incisions were made 4 cm lateral to the umbilicus after 5 mL of quarter percent Marcaine with epinephrine were injected. These were 5 mm incisions. Two long 5 mm trochars were placed under direct visualization. The right tube was grasped with an atraumatic grasper. Using the power seal, the mesosalpinx was cauterized and cut all the way down to the cornua of the uterus. The cornua of the uterus was then grasped with an atraumatic grasper. The utero-ovarian ligaments were cauterized and cut. The round ligament and broad ligament was cauterized and cut with the power seal. Hemostasis was achieved. The bladder flap was created using the Powerseal with cautery and cut [facility] across. The uterine arteries on the right side were extensively cauterized with the power se al. On the left side the tube was from the ovary using the probe. The tube and ovary were removed from the sidewall using the probe. The utero- ovarian ligaments were cauterized and cut. The round and broad ligament were cauterized and cut with the power seal. The remainder of the bladder flap was created using the power seal with cautery and cut, and the bladder taken down off the lower uterine segment and cervix. Using the Endoloop, the cervix was amputated from the uterus 2 cm above the uterosacral ligaments, after the ZUMI uterine manipulator was removed from the uterus. There was a small amount of bleeding noted from the posterior edge of the cervix, and this was cauterized for hemostasis. There was bleeding from the right edge of the cervix and this was cauterized with the powerseal for hemostasis. 6 mL of quarter percent Marcaine with epinephrine were injected above the pubic symphysis. A 12 mm incision was made. A 12 mm trocar was placed under direct visualization. An Endobag was placed through the suprapubic trocar and the uterus and tubes were placed into the Endobag. The trocar was removed. The edges of the endobag were brought through the sckin. The Armani placed into the endobag. The uterus was hand morcellated in approximately 20 pieces. The Endobag with the Armani were removed from the peritoneal cavity. The pelvis was copiously irrigated with warm normal saline. No bleeding was noted. 20 cc of 0.2% Rupivocaine were placed over the pedicles. The instruments were removed from the abdomen. The CO2 was allowed to escape. The suprapubic incision was closed on the fascia with 0 Vicryl. 3 simple interrupted sutures were placed in the subcutaneous layer to reapproximate. All of the incisions were closed with 4-0 Biosyn in a subcuticular fashion. Steri strips and Allevyn dressngs were placed over the incisions. The moistened sponge stick was removed from the vagina. Sponge, lap, and instrument counts were correct x-2. The patient tolerated the procedure well, was taken to PACU in stable condition. Complications: none Post-operative Condition: stable Disposition: PACU Plan for aftercare: Home after recovery
[2022-05-06] MEDS: OXYCODONE/ACETAMINOPHEN 5/325 TABLET 1 TAB PO (14:28)
[2022-05-06] MEDS: ONDANSETRON 4 MG/2 ML INJ IV (14:31)
== END 2022-05-06 15:35 | disposition home or self-care (01) ==
LOC: OR 08:16 → AC 08:20
PROVIDERS: PCP Family Medicine; Referring Provider Obstetrics & Gynecology; Visit Provider Obstetrics & Gynecology
PROC: 0UT94ZL Resection of Uterus, Supracervical, Percutaneous Endoscopic Approach (ICD-10-PCS; CPT 58544; principal; 2022-05-06 09:15)
DX: N94.6 Dysmenorrhea, unspecified (principal); N83.8 Other noninflammatory disorders of ovary, fallopian tube and broad ligament; E66.9 Obesity, unspecified; Z68.41 Body mass index [BMI] 40.0-44.9, adult
CPT/HCPCS: 58544; 81025; J0131; J0330; J0690; J1100; J1170; J1885; J2405; J2704; J2795; J3010

== ENCOUNTER → 2022-10-10 10:18 | Outpatient (CLI) | payer OTHER, SELFPAY | PROVIDERS: PCP Family Medicine; Referring Provider Internal Medicine; Visit Provider Internal Medicine | DX: Z23 Encounter for immunization (principal) | CPT/HCPCS: 90471; 90686 ==

== ENCOUNTER → 2022-10-31 09:35 | Outpatient (CLI) | payer OTHER, SELFPAY ==
[2022-10-31 10:57] LABS: Add Manual Diff / Slide Review NO; Basophils Absolute Auto 0 /uL (0-100); Basophils Percent Auto 0.4 % (0-2); Eosinophils Absolute Auto 0 /uL (0-450); Eosinophils Percent Auto 0.6 % (2-4); Hematocrit 37.7 % (36-46); Hemoglobin 12.1 g/dL (12.0-16.0); Lymphocytes Absolute Auto 2200 /uL (1100-4500); Lymphocytes Percent Auto 28.9 % (25-40); Mean Corpuscular HGB Conc 32.1 % (30-36); Mean Corpuscular Hemoglobin 22.9 PG (26-34); Mean Corpuscular Volume 71.4 fL (80-100); Monocytes Absolute Auto 300 /uL (0-900); Monocytes Percent Auto 4.4 % (3-14); Neutrophils Absolute Auto 4900 /uL (1500-7000); Neutrophils Percent Auto 65.7 % (50-75); Platelet Count 367 X10^3/uL (150-400); Red Blood Cell Count 5.28 X10^6/uL (4.0-5.2); Red Cell Distribution Width 17.3 % (11.6-14.8); White Blood Cell Count 7.5 X10^3/uL (4.5-11.0)
[2022-10-31 11:02] LABS: Hemoglobin A1C% w Est Avg Glu 5.6 % (4.0-6.0)
[2022-10-31 11:07] LABS: Alanine Aminotransferase 27 IU/L (<35); Albumin 4.4 g/dL (3.5-5.0); Albumin Globulin Ratio 1.4 (1.0-2.8); Alkaline Phosphatase 109 U/L (38-126); Aspartate Aminotransferase 19 IU/L (14-36); BUN Creatinine Ratio 16.4 (6-22); Bilirubin Total 0.4 mg/dL (0.2-1.3); Blood Urea Nitrogen 10 mg/dL (7-17); Calcium 8.9 mg/dL (8.4-10.2); Carbon Dioxide 25 mmol/L (22-32); Chloride 103 mmol/L (98-107); Cholesterol 250 mg/dL (140-199); Estimated Glomerular Filt Rate > 60 mL/min (>60); Globulin 3.2 g/dL (1.7-4.1); Glucose 98 mg/dL (70-100); HDL Cholesterol 39 mg/dL (40-60); HEMOLYSIS < 15 (0-50); LDL Cholesterol Calculated 173 mg/dL (<100); Potassium 4.3 mmol/L (3.4-5.1); Sodium 138 mmol/L (137-145); Total Protein 7.6 g/dL (6.3-8.2); Triglycerides 191 mg/dL (35-150)
[2022-10-31 11:37] LABS: TSH w/ Reflex to FT4 1.73 uIU/mL (0.47-4.68)
[2022-11-02 18:28] LABS: Protein C-Functional 58 % (73-180)
== END ==
PROVIDERS: PCP Family Medicine; Referring Provider Obstetrics & Gynecology; Visit Provider Obstetrics & Gynecology
DX: Z86.711 Personal history of pulmonary embolism (principal); I10 Essential (primary) hypertension
CPT/HCPCS: 36415; 80053; 80061; 83036; 84443; 85025; 85303

== ENCOUNTER → 2024-05-05 11:48 | Outpatient (CLI) | payer OTHER, SELFPAY ==
[2024-05-05 13:32] LABS: Add Manual Diff / Slide Review NO; Basophils Absolute Auto 0 /uL (0-100); Basophils Percent Auto 0.6 % (0-2); Eosinophils Absolute Auto 100 /uL (0-450); Eosinophils Percent Auto 0.8 % (2-4); Hematocrit 38.8 % (36-46); Hemoglobin 12.9 g/dL (12.0-16.0); Lymphocytes Absolute Auto 1900 /uL (1100-4500); Lymphocytes Percent Auto 27.2 % (25-40); Mean Corpuscular HGB Conc 33.2 % (30-36); Mean Corpuscular Hemoglobin 26.5 PG (26-34); Monocytes Absolute Auto 400 /uL (0-900); Monocytes Percent Auto 5.3 % (3-14); Neutrophils Absolute Auto 4500 /uL (1500-7000); Neutrophils Percent Auto 66.1 % (50-75); Platelet Count 311 X10^3/uL (150-400); Red Blood Cell Count 4.85 X10^6/uL (4.0-5.2); Red Cell Distribution Width 14.6 % (11.6-14.8); White Blood Cell Count 6.9 X10^3/uL (4.5-11.0)
[2024-05-05 13:41] LABS: Hemoglobin A1C% w Est Avg Glu 5.1 % (4.0-6.0)
[2024-05-05 14:06] LABS: Alanine Aminotransferase 22 IU/L (<35); Albumin 4.5 g/dL (3.5-5.0); Albumin Globulin Ratio 1.5 (1.0-2.8); Alkaline Phosphatase 83 U/L (38-126); Aspartate Aminotransferase 21 IU/L (14-36); Bilirubin Total 0.5 mg/dL (0.2-1.3); Blood Urea Nitrogen 13 mg/dL (7-17); Calcium 8.9 mg/dL (8.4-10.2); Carbon Dioxide 23 mmol/L (22-32); Chloride 110 mmol/L (98-107); Cholesterol 201 mg/dL (140-199); Estimated Glomerular Filt Rate > 60 mL/min (>60); Globulin 3.1 g/dL (1.7-4.1); Glucose 100 mg/dL (70-100); HDL Cholesterol 41 mg/dL (40-60); HEMOLYSIS < 15 (0-50); LDL Cholesterol Calculated 135 mg/dL (<100); Sodium 138 mmol/L (137-145); Total Protein 7.6 g/dL (6.3-8.2); Triglycerides 127 mg/dL (35-150)
[2024-05-05 14:34] LABS: Ferritin 11 ng/mL (6-137)
[2024-05-05 14:35] LABS: TSH w/ Reflex to FT4 0.93 uIU/mL (0.47-4.68)
[2024-05-05 15:06] LABS: Folate > 20.0 ng/mL (2.76-20.0); Vitamin B12 559 pg/mL (239-931)
[2024-05-05 17:12] LABS: Vitamin D 25 Hydroxy (D3) 31.3 ng/mL (30.0-100.0)
== END ==
PROVIDERS: PCP Family Medicine
DX: E66.9 Obesity, unspecified (principal); D68.51 Activated protein C resistance; Z86.711 Personal history of pulmonary embolism
CPT/HCPCS: 36415; 80053; 80061; 82306; 82607; 82728; 82746; 83036; 84443; 85025

== ENCOUNTER → 2025-09-22 10:00 | Outpatient (CLI) | payer OTHER, BC, SELFPAY ==
[2025-09-22 11:05] LABS: Add Manual Diff / Slide Review NO; Hematocrit 40.1 % (36-46); Hemoglobin 14.0 g/dL (12.0-16.0); Lymphocytes Absolute Auto 1400 /uL (1100-4500); Mean Corpuscular HGB Conc 34.9 % (30-36); Mean Corpuscular Hemoglobin 29.2 PG (26-34); Mean Corpuscular Volume 83.7 fL (80-100); Platelet Count 299 X10^3/uL (150-400)
[2025-09-22 11:23] LABS: Alanine Aminotransferase 21 IU/L (<35); Albumin 4.6 g/dL (3.5-5.0); Albumin Globulin Ratio 1.5 (1.0-2.8); Alkaline Phosphatase 68 U/L (38-126); Blood Urea Nitrogen 15 mg/dL (7-17); Calcium 9.1 mg/dL (8.4-10.2); Carbon Dioxide 21 mmol/L (22-32); Chloride 105 mmol/L (98-107); Cholesterol 220 mg/dL (140-199); Estimated Glomerular Filt Rate > 60 mL/min (>60); Globulin 3.0 g/dL (1.7-4.1); Glucose 93 mg/dL (70-99); HDL Cholesterol 45 mg/dL (40-60); HEMOLYSIS < 15 (0-50); Potassium 4.4 mmol/L (3.4-5.1); Sodium 137 mmol/L (137-145); Total Protein 7.6 g/dL (6.3-8.2); Triglycerides 84 mg/dL (35-150)
[2025-09-22 11:47] LABS: TSH w/ Reflex to FT4 0.78 uIU/mL (0.47-4.68)
== END ==
PROVIDERS: PCP Family Medicine; Referring Provider Family Medicine; Visit Provider Family Medicine
DX: Z00.00 Encounter for general adult medical examination without abnormal findings (principal); E66.01 Morbid (severe) obesity due to excess calories; Z68.41 Body mass index [BMI] 40.0-44.9, adult; I10 Essential (primary) hypertension; D68.59 Other primary thrombophilia
CPT/HCPCS: 36415; 80053; 80061; 84443; 85025

== ENCOUNTER → 2025-11-09 08:09 | Outpatient (CLI) | payer OTHER, SELFPAY ==
--- NOTE | 2025-11-09 08:10 | DI.MG.S_ITS ---
MM screening mammo BI: 11/09/2025. BI-RADS: 0 CLINICAL: 44-year old female for bilateral screening mammogram. Tyrer-Cuzick lifetime risk of 5.7%. No personal or first-degree family history of breast cancer. PRIOR EXAMS: None. This is a baseline mammogram. MAMMOGRAPHY TECHNIQUE: 2D and 3D (tomosynthesis) digital mammographic views obtained, with additional images as needed for full coverage. Current study was also evaluated with a Computer Aided Detection (CAD) system. DENSITY B. There are scattered areas of fibroglandular density. MAMMOGRAPHY FINDINGS Right: MLO only, Upper, Posterior depth: Asymmetry needing additional imaging evaluation. Left: No suspicious mass, asymmetry, microcalcification, or other abnormality seen. IMPRESSION: Right (Asymmetry): MLO only, Upper, Posterior depth * Incomplete - asymmetry needing additional imaging evaluation. Left * No evidence of malignancy. RECOMMENDATIONS Right: MLO only, Upper, Posterior depth * Further evaluation with diagnostic mammography and diagnostic ultrasound. Ultrasound to be performed only if needed. OVERALL ASSESSMENT CATEGORY BI-RADS-0: Incomplete - Need Additional Imaging Evaluation. ELECTRONICALLY SIGNED: Chanell Justice M.D. on 11/09/2025 at 05:09:09 PM PT Interpreting Station ID: [id number]
== END ==
LOC: MAMMO 08:09
PROVIDERS: PCP Family Medicine; Referring Provider Family Medicine; Visit Provider Family Medicine
DX: Z12.31 Encounter for screening mammogram for malignant neoplasm of breast (principal)
CPT/HCPCS: 77063; 77067